=== PATIENT | female | born 1955 | race Two or more races ===

== ENCOUNTER 2017-12-14 09:33 | Emergency (ER) | payer BC ==
[~2017-12-14] VITALS: Ht 160 cm; Wt 78.9 kg
[2017-12-14 09:46] VITALS: BP 116/86
[2017-12-14] MEDS ORDERED: LIDOCAINE 1% HCL (LOCAL ANESTH.) INJ 20ML MDV IJ ONE (10:30)
[2017-12-14] MEDS ORDERED: cefTRIAXone SOD 1,000 MG VL IM ONE (11:00)
== END 2017-12-14 11:26 | disposition home or self-care (01) ==
LOC: ER 09:33
DX: L02.31 Cutaneous abscess of buttock (principal); E78.5 Hyperlipidemia, unspecified
CPT/HCPCS: 10060; 96372; 99283; C1887; J0696; J2001